=== PATIENT | female | born 2000 | race Caucasian/White ===

== ENCOUNTER 2020-04-27 19:09 | Emergency (ER) | payer OTHER ==
[~2020-04-27] VITALS: Ht 170.2 cm; Wt 86.4 kg
[2020-04-27 19:09] VITALS: BP 141/82
[~2020-04-27 19:09] MED LIST: AZIT250T PO; HYDR-1179 PO; NIFE-11 PO; ONDA8TAB12 PO; PRED50TA PO; SERT50TA PO; [UNRECOGNIZED DRUG - OTHER]
[2020-04-27] MEDS ORDERED: BUTA1TAB23 PO (19:19)
[2020-04-27] MEDS ORDERED: ONDA4TAB12 PO (19:19)
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
[2020-04-27] MEDS ORDERED: BUTALB/APAP/CAFEIN 50/325/40MG TABLET. PO ONE (19:30)
[2020-04-27] MEDS ORDERED: ONDANSETRON ODT 4 MG TAB.RAPDIS PO ONE (19:30)
== END 2020-04-27 19:35 | disposition home or self-care (01) ==
LOC: ER 19:09
DX: F07.81 Postconcussional syndrome (principal); G44.309 Post-traumatic headache, unspecified, not intractable; I10 Essential (primary) hypertension; Z88.0 Allergy status to penicillin; Z88.1 Allergy status to other antibiotic agents
CPT/HCPCS: 99283; Q0162